=== PATIENT | female | born 1960 | race Caucasian/White ===

== ENCOUNTER 2024-06-20 05:07 | Observation (INO) ==
--- NOTE | 2024-05-13 12:00 | PAT Medication Instructions ---
Medication Instructions Date of Service May 13, 2024 Home Medications omeprazole 10 mg capsule,delayed release 10 mg PO DAILY PRN albuterol sulfate 90 mcg/actuation aerosol inhaler 1 inh inhalation QID PRN Continue as directed omeprazole 10 mg capsule,delayed release 10 mg PO DAILY PRN(if needed) Take morning of surgery With a small sip of water, OTHERWISE NOTHING TO EAT OR DRINK AFTER MIDNIGHT: albuterol sulfate 90 mcg/actuation aerosol inhaler 1 inh inhalation QID PRN(use if needed; please bring with you to hospital day of surgery if possible) Take evening before surgery albuterol sulfate 90 mcg/actuation aerosol inhaler 1 inh inhalation QID PRN(if needed) Other Notes If you have any questions please call us at [phone] or [phone] or [phone] or [phone]
--- NOTE | 2024-06-06 10:53 | Anesthesiology Consultation ---
Date of Service June 06, 2024 Assessment & Plan (1) Encounter for pre-operative examination: - Infectious disease screening: Per assessment on 06/06/24: No known recent infectious disease contacts or current infectious disease symptoms. - Outpatient joint assessment: Pt currently scheduled for inpatient pathway. If surgeon requests review for outpatient joint pathway, patient is acceptable candidate for outpatient joint program from anesthesia standpoint pending surgeon's office assessment that patient is motivated, has good support and completes [facility] Day Joint Program preop requirements. Chart Review Chart Review: Acceptable Risk for Surgery and Patient seen in Pre Admission Testing Teaching & Discussion Pre-Anesthesia Teaching/Discussion Notes: Instructed NPO after midnight before surgery,except medications with 15 cc of water. Medication instructions provided according to the PAT guidelines. History Surgery Operation Date: 06/20/24 07:00 Proposed Procedures p Right Anterior Total Hip Arthroplasty - Horacio Muniz, Height/Weight Height: 5 ft Weight: 50.1 kg Allergies Allergy/AdvReac Type Severity Reaction Status Date / Time Bleach (Sodium Hypochlorite) Allergy Severe Blisters Verified 06/04/24 15:06 Sulfa (Sulfonamide Allergy Mild Fever, Verified 06/04/24 15:06 Antibiotics) neck swelling Medications Home Medications Medication Instructions Recorded Confirmed Last Taken omeprazole 10 mg capsule,delayed 10 mg PO DAILY PRN hearburn 04/01/24 05/13/24 Unknown release albuterol sulfate 90 mcg/actuation 1 inh inhalation QID PRN sob 05/13/24 05/13/24 Unknown aerosol inhaler Past Medical History Medical History Chronic obstructive pulmonary disease "Mild/early stages" GERD (gastroesophageal reflux disease) History of COVID-19 2020: mild symptoms 2020: mild flu-like symptoms Osteoarthritis Pulmonary nodule Under CTS surveillance Exercise / Class Metabolic Activity III < 4 Walking/Shop/Light housework (one FS: No CP, + SOB (stable)) Past Family History Family History Other No family history of adverse response to anesthesia Past Surgical History Surgical History History of cataract surgery R/L History of esophagogastroduodenoscopy (EGD) (2018) Hx of knee surgery Right (as a teenager) [place] teeth extracted Past Anesthesia History No Hx of Anesthesia Complications and No Family Hx of Anesthesia Complications History of PONV No Hx of PONV and Hx of Motion Sickness (As child) Social History Smoking Status: Current every day smoker Smoking cigarettes per day: 1.5 PPD Do You Dip or Chew Tobacco: No Hx Alcohol Use: Yes alcohol intake frequency: holidays/special occasions only Hx Substance Use: No substance use type: does not use Review of Systems Patient denies chest pain, shortness of breath, fever, chills, cough, wheezing, palpitations. Physical Exam Vital Signs BP 135/75 P 78 TEMP 97.9 SP02 95%RA RESP 20 Physical Full cervical extension range of motion. Full TMJ range of motion. TMD 3 finger breaths Mallampati Score II Dentition: intact, upper front "repaired" Lungs: clear throughout to auscultation Cardiac: regular rate and rhythm, no murmurs noted Spine: normal Carotid arteries: negative bruit Extremities: no LE edema Lab Results Anesthesia Preop Results Results Anesthesia Widget: WBC 6.97 K/ul (4.8-10.8) 06/06/24 Hgb 15.0 g/dl (12.0-16.0) 06/06/24 Hct 44.9 % (37.0-47.0) 06/06/24 Plt 304 K/uL (130-400) 06/06/24 Na 137 mmol/L (136-145) 06/06/24 K 4.2 mmol/L (3.5-5.1) 06/06/24 Cl 103 mmol/L (98-107) 06/06/24 CO2 27 mmol/L (21-32) 06/06/24 BUN 11 mg/dl (6-23) 06/06/24 Creat 0.73 mg/dl (0.6-1.2) 06/06/24 Glucose Level 91 mg/dl (70-99(Fasting)) 06/06/24 PT 10.3 Seconds (9.0-12.0) 06/06/24 PTT 27 Seconds (21-31) 06/06/24 INR 0.9 (0.9-1.1) 06/06/24 Blood Type O Positive 06/06/24 Antibody Screen NEGATIVE 06/06/24 Testing Electrocardiogram Date: 08/02/24 NSR at 71bpm. "Normal ECG" Other Testing Chest CT Date: 06/02/24 An irregularly shaped subpleural RUL nodule measures 20mm, indeterminate for a nodular focus of pleuroparenchymal scarring or a pulmonary nodule. LungRADS Category S: Negative, no new/unknown potentially significant incidental findings requiring urgent or additional evaluation.
--- NOTE | 2024-06-19 07:30 | History & Physical Report ---
Date of Service June 19, 2024 Assessment & Plan (1) Osteoarthritis of right hip: We will proceed with a right total hip arthroplasty. Postoperatively she will be started on aspirin for DVT prophylaxis and kept overnight in the hospital for postop medical management. She plans [facility]. History of Present Illness Chief Complaint: Osteoarthritis of the right hip. Primary Care Provider: NO PCP Pilar is a pleasant 64-year-old female who has been dealing with chronic increasing right hip and groin pain. It has been going on for about 2 years. She is noticing decreased range of motion of her hip and constant pain. She did have an injection about 3 weeks ago in her right hip. She said the injection took care of all of her pain and felt great for a few days, but unfortunately, the pain returned. X-rays and clinical examination were diagnostic for worsening osteoarthritis of the right hip. After failing conservative treatment, she has elected to proceed with a right total hip arthroplasty. Allergies Allergy/AdvReac Type Severity Reaction Status Date / Time Bleach (Sodium Hypochlorite) Allergy Severe Blisters Verified 06/04/24 15:06 Sulfa (Sulfonamide Allergy Mild Fever, Verified 06/04/24 15:06 Antibiotics) neck swelling Home Medications Medication Instructions Recorded Confirmed Type omeprazole 10 mg capsule,delayed 10 mg PO DAILY PRN hearburn 04/01/24 05/13/24 History release albuterol sulfate 90 mcg/actuation 1 inh inhalation QID PRN sob 05/13/24 05/13/24 History aerosol inhaler Past Med/Surg History Problem List Encounter for pre-operative examination Osteoarthritis of right hip Medical History Pulmonary nodule Under CTS surveillance History of COVID-19 2020: mild symptoms 2020: mild flu-like symptoms GERD (gastroesophageal reflux disease) Osteoarthritis Chronic obstructive pulmonary disease "Mild/early stages" Surgical History History of cataract surgery R/L History of esophagogastroduodenoscopy (EGD) (2018) [place] teeth extracted Hx of knee surgery Right (as a teenager) Family History Other No family history of adverse response to anesthesia Social History Smoking Status: Current every day smoker Tobacco Type: Cigarettes Cigarettes Per Day: 1.5 PPD; Second Hand Exposure: No; Do You Dip or Chew Tobacco: No; Hx Alcohol Use: Yes Hx Substance Use: No Preferred Language: Korean Communication Ability: Effective Sales Operations Assistant Required: No Beliefs That Will Affect Care: None Current Living Situation: Alone Feels Safe at Home: Yes Assistive Devices: None Review of Systems All systems reviewed & are unremarkable except as noted in HPI & below. Physical Exam On physical examination of the right hip, she has decreased range of motion. She has pain with forced internal/external rotation. Most of her pain is located in the groin.. Constitutional WD/WN, vitals as above Eyes PERRL, conjunctivae normal, anicteric sclerae ENMT external ear and nose normal, oropharynx normal Neck trachea midline, no thyromegaly Respiratory normal respiratory effort Cardiovascular RRR, no murmur, no edema Gastrointestinal (Abdomen) normal bowel sounds, soft, nontender, no hepatosplenomegaly Psychiatric A+Ox3, euthymic affect Results & Data Results & Data Laboratory Results . Diagnostic Findings X-rays of the right hip show advanced osteoarthritis with joint space narrowing, osteophyte formation, and [id number] articulation. PG Care Time/CCT Total # of Minutes Spent Total Time Spent with Patient: Total time spent is greater than 50% in coordination of care (as documented) at patient's floor/unit and/or counseling patient: Coding Level of Care Code None Diagnoses Osteoarthritis of right hip M16.11
[2024-06-20] MEDS: dexAMETHasone**PF** 10 MG/ML VIAL IV SCH (05:48)
[2024-06-20] MEDS: FAMOTIDINE 20 MG TAB PO SCH (05:48)
[2024-06-20] MEDS: LR 60ML/HR IV SCH (05:48)
[2024-06-20] MEDS: LR 500ML BOLUS, THEN 15ML/HR IV SCH (05:48)
[2024-06-20] MEDS: ACETAMINOPHEN 500 MG TAB PO SCH ×2 (05:48→14:22)
[2024-06-20] MEDS: GABAPENTIN 300 MG CAP PO SCH (05:48)
[2024-06-20] MEDS ORDERED: LIDOCAINE 2% 2 ML VIAL/AMP(20MG/ML) INFIL ONE (06:04)
[2024-06-20] MEDS ORDERED: MIDAZOLAM HCL 1 MG/ML 2ML VIAL ONE (06:04)
[2024-06-20] MEDS ORDERED: fentaNYL citrate PF 100 MCG/2 ML VIAL ONE (06:04)
[2024-06-20] MEDS ORDERED: PROPOFOL IV EMULSION 10 MG/ML 20 ML VIAL IV ONE (06:04)
[2024-06-20] MEDS ORDERED: DexMEDEtomidine HCL IV 100 MCG/ML VIAL IV ONE (06:10)
[2024-06-20] MEDS ORDERED: ROPIVACAINE 0.5% 5 MG/ML 30 ML VIAL ONE (06:15)
[2024-06-20] MEDS ORDERED: KETAMINE HCL 10MG/ML SYR ONE (06:18)
[2024-06-20] MEDS ORDERED: HYDROmorphone INJ 1 MG/ML SYRINGE IV PRN (06:35)
[2024-06-20] MEDS ORDERED: ePHEDrine sulfate 50 MG/ML AMP IV PRN (06:35)
[2024-06-20] MEDS ORDERED: ATROPINE SULFATE 0.1 MG/ML 10ML SYR IV PRN (06:35)
[2024-06-20] MEDS ORDERED: KETOROLAC 30 MG/ML VIAL IV PRN (06:35)
[2024-06-20] MEDS ORDERED: ONDANSETRON INJ 2 MG/ML 2 ML VIAL IV PRN ×2 (06:35→10:55)
--- NOTE | 2024-06-20 06:38 | History & Physical Bridge Note ---
Date of Service June 20, 2024 History & Physical Bridge Note I have examined the patient, reviewed the History & Physical and in the interval since the performance of the History & Physical I have noted the following changes of clinical significance: no changes noted
[2024-06-20] MEDS: TRANEXAMIC ACID 1,000 MG **IV Pre-op IV SCH (06:44)
[2024-06-20] MEDS: ceFAZolin 2000MG 2,000 MG/15 ML SYR IV SCH ×2 (06:59→14:22)
[2024-06-20] MEDS: TRANEXAMIC ACID 1,000 MG **IV Intra-op IV SCH (07:56)
--- NOTE | 2024-06-20 07:56 | Operative Report ---
PG Post Operative Report Pre & Post Diagnosis Operation Date: 06/20/24 07:00 Pre-Op Diagnosis: Degenerative Joint Disease Right Hip Post-Op Diagnosis: Degenerative Joint Disease Right Hip I identified the patient and participated in the time-out.: Yes Procedure Operation Date: 06/20/24 07:00 Actual Procedures p Right Anterior Total Hip Arthroplasty(Right) - Horacio Muniz DO Surgeon Horacio Muniz DO Parking Lot Attendant Horacio Moreno PA-C Estimated Blood Loss 200 Findings Consistent with Post-Op Diagnosis Specimens Right femoral head Description of Procedure Implants used I used a ZimmerBiomet total hip arthroplasty system with a size 2 standard offset Avenir Complete stem, a 46 mm G7 cup with a 25mm screw, an E1 polyet hylene liner, a 32 mm ceramic head with a 0 neck. Pilar arrived at the hospital for the above procedure. She was seen in the preoperative holding area and the operative extremity was identified and signed. She was given a spinal anesthetic, a preoperative antibiotic, and TXA. She was then taken back to the operating room and laid on the table in the supine position. She was given basic sedation. The operative leg was secured to a Puristst leg positioner. The hip was then prepped and draped in sterile fashion. A timeout was done and the patient and the operative extremity was properly identified. An anterior approach was used. Dissection was taken down through the fascia and the tensor muscle belly was retracted laterally and the rectus was retracted medially. The circumflex vessels were identified and ligated. The capsule was then incised and tagged for later repair. The femoral neck was then cut and the femoral head was removed. The acetabulum was exposed. Time was spent doing a complete circumferential labral release. Sequential reaming of the acetabulum up to a size 45 reamer was done. Final reamings were done under fluoroscopy to ensure appropriate version. A Biomet 46 mm G7 cup was then impacted into place. A single 25 mm screw was placed. The E1 polyethylene liner was then snapped into place. Surrounding soft tissues were then injected with 100 cc of an orthopedic pain control cocktail. The proximal femur was then exposed. Sequential broaching up to a size 2 broach was done. Off that broach a size 32 head with a 0 neck was trialed. The hip was reduced and fluoroscopic images showed anatomic alignment of the implants in acceptable length. The broach was removed. The final size 2 standard offset Avenir Complete stem was then impacted into place. A ceramic 32 mm head with a 0 neck was then impacted onto the stem and the hip was reduced. Final fluoroscopic images showed anatomic alignment of the hip. The capsule was then closed with #1 Vicryl suture. A dilute betadyne lavage was then done for 3 minutes. The joint was then irrigated with normal saline solution. The fascia was closed with #1 PDS suture. Skin was closed with 2-0 Vicryl, gallito, and a Silverlon dressing. She was then transferred to a hospital bed and taken to the post anesthesia care unit in stable condition. She tolerated the procedure well. Horacio Moreno PA-C, was present for the entire procedure. He was critical for patient positioning, prepping, draping, retraction exposure, wound closure and application of sterile dressing. I attest to the content of the Intraoperative Record and any orders documented therein. Any exceptions are noted below.
[2024-06-20] MEDS: ORTHO JOINT ANESTHETIC ONE (07:57)
[2024-06-20] MEDS: ROPIV 0.5% 246mg, Ketorolac 30mg, EPINEPHrine 0.5mg in NSS INFIL SCH (07:57)
--- NOTE | 2024-06-20 08:22 | Fluoroscopy Report ---
FL hip RT 1V CLINICAL HISTORY: RIGHT ANTERIOR HIP TECHNIQUE: 1 views were obtained with the C-arm in the OR with the above procedure. Total fluoroscopy time was 8 seconds. Radiation dose was 0.7 mGy. Comparison: Comparison is made to hip radiographs 04/01/2024 FINDINGS/IMPRESSION: Intraoperative images were obtained of right anterior hip arthroplasty. Please correlate with intraoperative fluoroscopy and operative report. ACT 112: Negative or not required by law. Electronically signed by: Feng Osman M.D. 06/20/2024 8:20 AM
--- NOTE | 2024-06-20 08:44 | XRay Report ---
XR hip 1V RT w pelvis CLINICAL HISTORY: IN PACU - Post Surgical TECHNIQUE: 1 view of the right hip and single frontal view of the pelvis were obtained. Comparison: Comparison is made to right hip radiograph 04/01/2024 FINDINGS: Patient is status post total hip arthroplasty with expected postsurgical changes including soft tissu e swelling and subcutaneous emphysema. IMPRESSION: Expected postoperative appearance status post placement of total hip arthroplasty. ACT 112: Negative or not required by law. Electronically signed by: Feng Osman M.D. 06/20/2024 8:43 AM
--- NOTE | 2024-06-20 10:36 | Anesthesiology Progress Note ---
Date of Service June 20, 2024 Anesthesia Post Procedure Vital Signs Vital Signs: Temp Pulse Pulse Resp BP Pulse Ox O2 Del Method 06/20/24 10:10 36.4 C L 66 17 131/73 99 Room Air 06/20/24 09:45 36.4 C L 62 13 141/69 H 95 Room Air 06/20/24 09:30 65 14 120/67 92 Room Air 06/20/24 09:25 65 13 125/72 94 Room Air 06/20/24 09:15 66 13 130/66 92 Room Air 06/20/24 09:05 70 12 122/64 94 Room Air 06/20/24 08:55 70 12 115/68 94 Room Air 06/20/24 08:45 66 12 122/66 100 Oxymask 06/20/24 08:35 69 16 133/64 100 Oxymask 06/20/24 08:25 65 16 101/56 L 99 Oxymask 06/20/24 08:17 36 C L 74 21 137/64 99 Oxymask 06/20/24 05:39 Room Air 06/20/24 05:38 36.5 C 77 20 173/84 H 94 Room Air O2 Flow Rate 06/20/24 10:10 06/20/24 09:45 06/20/24 09:30 06/20/24 09:25 06/20/24 09:15 06/20/24 09:05 06/20/24 08:55 06/20/24 08:45 3 06/20/24 08:35 3 06/20/24 08:25 6 06/20/24 08:17 6 06/20/24 05:39 06/20/24 05:38 Transfer of Care Handoff Completed per policy Notes Mental Status: alert / awake / arousable Patient Amnestic to Procedure: Yes Nausea / Vomiting: adequately controlled Pain: adequately controlled Airway Patency, RR, SpO2: stable & adequate BP & HR: stable & adequate Hydration State: stable & adequate Neuraxial Anesthesia: was administered and sensory block is resolving Anesthetic Complications: no major complications apparent
[2024-06-20] MEDS ORDERED: HYDROmorphone INJ 0.5 MG/0.5 ML SYR IV PRN (10:55)
[2024-06-20] MEDS ORDERED: MAGNESIUM HYDROXIDE SUSP 30 ML UDC PO PRN (10:55)
[2024-06-20] MEDS ORDERED: ALBUTEROL HFA 8 GM INHALER INH PRN (10:55)
[2024-06-20] MEDS ORDERED: METOCLOPRAMIDE HCL INJ 5 MG/ML 2 ML VIAL IV PRN (10:55)
[2024-06-20] MEDS ORDERED: bisacodyL 10 MG SUPP PR PRN (10:55)
[2024-06-20] MEDS ORDERED: oxyCODONE HCL IR 5 MG TAB (IMMEDIATE RELEASE) PO PRN (10:55)
[2024-06-20] MEDS ORDERED: NALOXONE HCL 0.4 MG/1 ML VIAL/CARP IV PRN (10:55)
[2024-06-20] MEDS: DOCUSATE SODIUM 100 MG CAP PO SCH (11:58)
[2024-06-20] MEDS: MULTIVITAMIN TAB PO SCH (11:59)
[2024-06-20] MEDS: ASPIRIN 81 MG ECTAB PO SCH (11:59)
[2024-06-20] MEDS: KETOROLAC 30 MG/ML VIAL IV SCH (11:59)
[2024-06-20] MEDS: SODIUM CHLORIDE 0.9% 1,000 ML IV SCH (15:08)
[2024-06-20] MEDS ORDERED: KETOROLAC 30 MG/ML VIAL IV SCH (18:00)
[2024-06-20] MEDS: SENNA 8.6 MG TAB PO SCH (20:10)
[2024-06-20] MEDS: KETOROLAC TROMETHAMINE 15 MG/ML VIAL IV SCH (22:19)
[2024-06-20 23:04] VITALS: TEMP 97.5
[2024-06-21 03:29] VITALS: O2SAT 94
[2024-06-21 07:13] VITALS: RESP 17
[2024-06-21] MEDS: dexAMETHasone 4 MG TAB PO SCH (07:32)
--- NOTE | 2024-06-21 07:46 | Orthopedic Progress Note ---
Date of Service June 21, 2024 Assessment & Plan (1) Status post right hip replacement: Overall she is doing very well. She is not having much pain in the right hip. She will be seen by physical therapy today for ambulation and range of motion exercises. She is on aspirin for DVT prophylaxis. She can be discharged home later today. She will follow-up with orthopedics in 2 weeks. Karina Quezada was seen and examined at bedside this morning. Overall she is doing very well. She is not having much pain in the right hip. She has been ambulating to the bathroom. She has no complaints.. Review of Systems All systems reviewed & are unremarkable except as noted in HPI & below. Physical Exam On physical examination of the right hip, the dressing is clean and dry. Her leg is out full extension. She has active dorsiflexion plantarflexion of her right ankle.. Results & Data Results & Data Laboratory Results . Diagnostic Findings Postoperative x-rays of the right hip show the prosthesis to be in anatomic alignment without any evidence of fracture, his cage, or loosening.. PG Care Time/CCT Total # of Minutes Spent Total Time Spent with Patient: Total time spent is greater than 50% in coordination of care (as documented) at patient's floor/unit and/or counseling patient: Coding Level of Care Code 47303 Post Operative Follow-Up Diagnoses Status post right hip replacement Z96.641
--- NOTE | 2024-06-21 07:47 | Discharge Summary ---
Date of Service June 21, 2024 Admission HPI (Per Admitting) Pilar is a pleasant 64-year-old female who has been dealing with chronic increasing right hip and groin pain. It has been going on for about 2 years. She is noticing decreased range of motion of her hip and constant pain. She did have an injection about 3 weeks ago in her right hip. She said the injection took care of all of her pain and felt great for a few days, but unfortunately, the pain returned. X-rays and clinical examination were diagnostic for worsening osteoarthritis of the right hip. After failing conservative treatment, she has elected to proceed with a right total hip arthroplasty. Admission Exam (Per Admitting) On physical examination of the right hip, she has decreased range of motion. She has pain with forced internal/external rotation. Most of her pain is located in the groin.. Principal Diagnosis Same as "Discharge Diagnosis" noted below under Discharge Instructions. Discharge Exam On physical examination of the right hip, the dressing is clean and dry. Her leg is out full extension. She has active dorsiflexion plantarflexion of her right ankle.. Discharge Data Procedures Performed Operation Date: 06/20/24 07:00 Actual Procedures p Right Anterior Total Hip Arthroplasty(Right) - Horacio Muniz DO Ordered Studies 06/20/24 07:00 FL hip RT 1V Routine Hospital Course (1) Status post right hip replacement: On June 20, 2024 Pilar arrived at [facility] and underwent a right hip replacement without complication. She had a spinal anesthetic. Postoperatively she was started on aspirin for DVT prophylaxis and transferred to the general orthopedic floors. Her hospital course was uneventful. On postop day #1, her vital signs were stable and her pain was well-controlled. She was able to participate well with physical therapy doing ambulation and range of motion exercises. She was then discharged home. She will follow-up with orthopedics in 2 weeks. PG Care Time/CCT Total # of Minutes Spent Total Time Spent with Patient: Total time spent is greater than 50% in coordination of care (as documented) at patient's floor/unit and/or counseling patient: Discharge Plan Discharge Items Patient Disposition: Home - Self-Care Reason For Visit: Degenerative Joint Disease Right Hip Discharge Diagnosis: Right hip replacement Activity: Per Instructions section Non-emergency contact: Surgeon Call non-emergency contact if: your wound has increased redness and your wound has increased drainage Follow-up/Referrals: Grant White MD [Primary Care Provider] - Diet: Regular Addtl Attending Provider Instructions: Activity and Therapy Recommendations: * If you are using [facility] then therapy will be provided at your home until they feel you have accomplished all of your goals. * If you are using [facility] then Physical Therapy will be provided until they feel you are ready to start Outpatient Physical Therapy. * If you are not using home therapy then Outpatient Physical Therapy should start about 3-5 days from your day of surgery. Therapy will last about 6-10 weeks * You were shown a series of exercises in the hospital. Do these exercises three times each day including the exercises you were shown in physical therapy. * Get up and walk several times each day.~ For the first four weeks, try not to stand or walk for more than one hour at a time. If you do stand or walk for more than one hour, you will not hurt anything, but your leg will likely swell.~~ * As you feel comfortable, you may change from the walker or crutches to a cane and~then to independent walking. Medications: * Narcotic You will likely be sent home from the hospital with a prescription for the narcotic pain medication that worked best throughout your stay. * Cefadroxil -take the antibiotic twice a day for 10 days to help prevent infection. * Aspirin Most patients will be required to take Aspirin 81mg twice a day for 6 weeks after surgery. This is obtained [id number] and a prescription is not necessary. * Other medications may be prescribed for specific circumstances. If you have any questions, please call the office at . * Resume previous home medications unless otherwise instructed TEDs/Elastic Stockings: The white elastic stockings help limit swelling and prevent blood clots from forming in your legs. The more you wear them, the more they work. Wear them for six weeks. Dressing Care: Leave the Silverlon dressing in place for 7 days. After 7 days you may remove the dressing. If the incision is not draining then you may leave the gallito open to air. If there is a little bit of drainage or if the gallito are getting stuck on your clothing then cover the incision with a dry dressing. The gallito will be removed at your 2 week follow-up appointment. Showering: You may shower with the Silverlon dressing in place. Do not let the shower spray hit the dressing directly. Pat the Silverlon dressing dry. If the dressing becomes wet underneath, then simply remove the dressing. Keep the incision dry until you are 7 days out from the day of surgery. After 7 days you may remove the Silverlon dressing and shower with the gallito exposed. Let soapy water run over the gallito and pat them dry. Do not scrub or soak the incision. Things To Watch For: * Drainage from the incision site that occurs more than one week after your laurie jazmine. * Increased redness at the incision site. * Fever above 102 degrees Fahrenheit. * Unusual chest pain or shortness of breath. * Call [facility] at with any of the above problems Follow-Up Visit: Follow-up with Dr. Muniz's PA (Horacio Moreno) 2-3 weeks after your day of surgery. He will remove your gallito and answer any questions. If you have any additional questions or concerns, Dr Muniz is usually in the office at the same time and will be available An appointment was probably scheduled when you signed-up for surgery in the off ice. If you have any questions call Office Instructions: More detailed instructions as well as Frequently Asked Questions were provided in a folder by our office when you signed-up for surgery. Please review these instructions when you get home. If you have any further questions or concerns, please feel free to call the office at [phone] Pending Studies at Discharge: No Stand-Alone Forms: [facility], Smoking Cessation Medications and DC Order Prescriptions: New oxycodone 5 mg Tablet 5 mg PO Q4H PRN (Reason: pain) Qty: 30 0RF cefadroxil 500 mg capsule 500 mg PO BID 10 Days Qty: 20 0RF aspirin 81 mg Tablet,Delayed Release (Dr/Ec) 81 mg PO BID 42 Days Qty: 0 0RF Continued omeprazole 10 mg capsule,delayed release(DR/EC) 10 mg PO DAILY PRN (Reason: hearburn) albuterol sulfate 90 mcg/actuation Hfa Aerosol Inhaler 1 inh INHALATION QID PRN (Reason: sob) Discharge Orders: Discharge Order (Routine); Ordered 06/21/24 Ordered By: Horacio Muniz Admission Data Admit Date/Time: 06/20/24 08:16 Attending Provider: Horacio Muniz Admit Provider: Horacio Muniz Primary Care Provider: Grant White
[2024-06-21 09:13] VITALS: BP 157/75; PULSE 73
== END 2024-06-21 10:55 | disposition home or self-care (01) ==
LOC: 3E 05:07 → ASU 05:07